=== PATIENT | female | born 1955 | race Caucasian/White ===

== ENCOUNTER → 2017-03-06 | Outpatient (CLI) | payer BC ==
--- NOTE | ~2017-03-06 | US6 ---
[facility] A Service of [facility] RADIOLOGY TEXT RESULTS PATIENT: BALDOMERO HARDWICK LOCATION: [facility] : 53 UNIT #: [id number] AGE: [address]: Michelle Harris MD SEX: F ORDER DR: [id number] [place], [place] [address] [id number] O MR#: [id number] #: [id number] NAME: BALDOMERO HARDWICK : 1955 SEX: F STUDY DATE/TIME: 03/06/2017 9:11 UNIT: CGUS ROOM: STUDY DESCRIPTION: US Abdominal Limited Attending Physician: Michelle Harris M.D. Referring Physician: Michelle Harris M.D. Ordering Physician: Michelle Harris M.D. Primary Care Physician: Michelle Harris M.D. MEDICAL IMAGING REPORT This report is preliminary unless electronic signature is present EXAM Right upper quadrant abdominal ultrasound DATE: 03/06/2017 HISTORY Abnormal elevated liver function test. COMPARISON: None FINDINGS The liver demonstrates a coarsened echotexture with diminished acoustic transmission suggesting features of hepatic steatosis. The liver size is mildly enlarged up to 19.6 cm craniocaudal. No focal liver lesion is identified. Pancreatic tail is partially skin by bowel gas but the visualized pancreas appears unremarkable. No ascites is seen. Main portal vein is patent. Gallbladder is free of shadowing stone, sludge, wall thickening, pericholecystic fluid. Right kidney measures 11.2 cm in length without focal cortical lesion, shadowing stone or hydronephrosis. Common bile duct caliber is within normal limits, 4 mm. No intrahepatic ductal dilation is seen. IMPRESSION 1. Mild hepatic enlargement with sonographic features suggestive of hepatic steatosis. 2. Remainder of the examination is within normal limits. Dictated by... Dafne Barron M.D. [facility] A Service of [facility] RADIOLOGY TEXT RESULTS PATIENT: BALDOMERO HARDWICK LOCATION: [facility] : 53 UNIT #: [id number] AGE: [address]: Michelle Harris MD SEX: F ORDER DR: THIS IS AN ELECTRONICALLY VERIFIED REPORT Dafne Barron M.D. at 03/07/2017 7:11 AM Stacey/ila TD: 03/06/2017 10:49 JOB #: [id number] MEDICAL IMAGING REPORT Page 1 of 1 COPY
== END | disposition home or self-care (01) ==
LOC: CGUS 08:32
DX: R79.89 Other specified abnormal findings of blood chemistry (principal); R16.0 Hepatomegaly, not elsewhere classified
CPT/HCPCS: 76705